=== PATIENT | male | born 1955 | race Caucasian/White ===

== ENCOUNTER → 2017-10-22 | Outpatient (CLI) | payer MEDICARE ==
--- NOTE | 2017-10-22 12:54 | XR ---
EXAMINATION TYPE: XR cervical spine comp DATE OF EXAM: 10/22/2017 COMPARISON: NONE HISTORY: 61-year-old male with left neck pain, limited range of motion, cervicalgia TECHNIQUE: 5 FINDINGS: Limited obliquity for assessment of the lower cervical neuroforamen on both sides. There appears to b e moderate bony neuroforaminal narrowing on the right at C4-C5 and mild on the left at C4-C5. Suspect additional neuroforaminal narrowing lower cervical spine on the right. No predental space widening or prevertebral soft tissue swelling. Normal odontoid view. The cervicoth oracic junction is obscured by the patient's shoulders and not assessed. Otherwise, cervical alignmen t is maintained. Moderate disc/end plate degenerative change from C5 through C7 levels with disc spac e narrowing, endplate sclerosis, and endplate spondylosis. Posterior disc osteophyte complex is also present. IMPRESSION: 1. Moderate to advanced spondylotic changes from C5 through C7 levels including posterior disc osteop hyte complexes. 2. Moderate right-sided neuroforaminal narrowing at C4-C5 and mild on the left. Suspect additional ne uroforaminal narrowing in the lower cervical spine on the right. 3. Cervicothoracic junction is obscured by the patient's shoulders and not assessed. Remaining cervic al alignment is maintained.
== END | disposition home or self-care (01) ==
LOC: RADXRYALE 10:19
PROVIDERS: ATTEND Internal Medicine
DX: M99.71 Connective tissue and disc stenosis of intervertebral foramina of cervical region (principal); M47.812 Spondylosis without myelopathy or radiculopathy, cervical region; M25.78 Osteophyte, vertebrae
CPT/HCPCS: 72050

== ENCOUNTER → 2019-03-04 | Outpatient (CLI) | payer MEDICARE ==
--- NOTE | 2019-03-04 15:16 | US ---
EXAMINATION TYPE: US venous doppler duplex LE RT DATE OF EXAM: 03/04/2019 3:03 PM COMPARISON: US CLINICAL HISTORY: M79.661 RLE pain. SIDE PERFORMED: Right TECHNIQUE: The lower extremity deep venous system is examined utilizing real time linear array sonog victoria with graded compression, doppler sonography and color-flow sonography. VESSELS IMAGED: External Iliac Vein (EIV) Common Femoral Vein Deep Femoral Vein Greater Saphenous Vein * Femoral Vein Popliteal Vein Small Saphenous Vein * Proximal Calf Veins (* superficial vessels) Grayscale, color doppler, spectral doppler imaging performed of the deep veins of the right lower ext remity. There is normal flow, compressibility, vascular waveforms. Right Leg: Negative for DVT IMPRESSION: No sonographic evidence of deep venous thrombosis within the right lower extremity.
--- NOTE | 2019-03-04 15:26 | XR ---
EXAMINATION TYPE: XR knee complete RT DATE OF EXAM: 03/04/2019 CLINICAL HISTORY: Right knee pain and clicking TECHNIQUE: Three views of the right knee are obtained. COMPARISON: None. FINDINGS: There is no acute fracture/dislocation evident in right knee. Osseous exostosis of the med ial metaphysis of the proximal right tibia is unchanged from 2014. Degenerative changes however have advanced from the prior with bicompartmental joint space narrowing and protuberant marginal osteophyt es. Some lucency is seen in the lateral tibial plateau, possible subchondral cyst formation. Small dumont prapatellar joint effusion. Minimal atherosclerosis. IMPRESSION: 1. No acute fracture or dislocation in the right knee. 2. 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 3. Small suprapatellar joint effusion.
== END | disposition home or self-care (01) ==
LOC: RADUSWWP 14:39
PROVIDERS: ATTEND Internal Medicine
DX: M79.661 Pain in right lower leg (principal); M17.11 Unilateral primary osteoarthritis, right knee

== ENCOUNTER → 2023-02-22 | Outpatient (CLI) | payer MEDICARE ==
--- NOTE | 2023-02-22 14:06 | XR ---
EXAMINATION TYPE: XR chest 2V DATE OF EXAM: 02/22/2023 COMPARISON: NONE HISTORY: Shortness of breath TECHNIQUE: Frontal and lateral views of the chest are obtained. FINDINGS: Scattered senescent parenchymal changes noted. Hyperinflation compatible with COPD. Reticular-nodular infiltrate left lower lobe and right upper lobe Heart size is stable. Mediastinal structures are stable and grossly unremarkable. No evidence for hilar prominence. Degenerative changes dorsal spine. IMPRESSION: 1. Reticular-nodular infiltrate left lower lobe and right upper lobe
== END | disposition home or self-care (01) ==
LOC: RADXRYALE 13:45
PROVIDERS: ATTEND Internal Medicine
DX: J44.9 Chronic obstructive pulmonary disease, unspecified (principal); R91.8 Other nonspecific abnormal finding of lung field
CPT/HCPCS: 71046

== ENCOUNTER → 2023-03-06 | Outpatient (CLI) | payer MEDICARE ==
[2023-03-06 15:48] LABS: African American GFR (CKD) >90 (>60 ml/min/1.73 sqM); Blood Urea Nitrogen 20 mg/dL (9-20); Non-African American GFR(CKD) >90 (>60 ml/min/1.73 sqM)
--- NOTE | 2023-03-06 17:55 | CT ---
EXAMINATION TYPE: CT chest w con CT DLP: 606.9 mGycm, Automated exposure control for dose reduction was used. 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 Sagittal and coronal reformats were created for review. Contrast used:100 mL of Isovue 300 with IV Contrast (None if empty) Oral contrast used: (None if empty) FINDINGS: LUNGS/ PLEURA: Scattered peripheral reticulation with cystic change likely representing early honeyco mbing. There is a coarsened interstitium. No evidence for air trapping. No focal consolidation, pneum othorax or pleural effusion. Intralobular septal thickening also felt to be present. AIRWAY: No bronchial wall thickening or bronchiectasis. HEART: The heart is enlarged for size. MEDIASTINUM: No gross evidence of adenopathy. VASCULATURE: No aortic aneurysm. No filling defect within the pulmonary arterial vasculature to sugg est pulmonary embolus. MUSCULOSKELETAL: Moderate disc degeneration changes are present throughout the thoracolumbar spine. SOFT TISSUES/LYMPH NODES: Electronic device in the left chest wall. LOWER NECK: No significant findings. UPPER ABDOMEN: No significant findings. IMPRESSION: 1. Interstitial lung disease changes with possible early honeycombing suggesting pulmonary fibrosis. Clinical correlation advised. Attention follow-up imaging. 2. Cardiomegaly with pulmonary vascular congestion correlate with serum BNP. Follow up recommendations for incidental pulmonary nodules, if there are any, are per [employer] or [employer]. [email or web address]
== END | disposition home or self-care (01) ==
LOC: RADCTMAIN 14:55
PROVIDERS: ATTEND Internal Medicine
DX: J40 Bronchitis, not specified as acute or chronic (principal); J84.9 Interstitial pulmonary disease, unspecified; R09.89 Other specified symptoms and signs involving the circulatory and respiratory systems; I51.7 Cardiomegaly
CPT/HCPCS: 82565; 84520; 71260; 36415; Q9967